=== PATIENT | male | born 1950 | race Caucasian/White ===

== ENCOUNTER → 2016-10-11 | Outpatient (CLI) | payer MEDICARE, OTHER ==
--- NOTE | ~2016-10-11 | PUL ---
PATIENT'S NAME: CORTEZ ALMENDAREZ [facility] AGE: 65 Y [address] ROOM: [place] [address] LOCATION: [facility] ADMIT DATE: 10/11/2016 Pulmonary DISCHARGE DATE: FAMILY PHYSICIAN: Deborah Greene MD ATTENDING PHYSICIAN: Deborah Greene NAME OF PROCEDURE: Sleep Study DATE OF PROCEDURE: 10/11/2016 TECH: FILI Maria TEST [place]: [facility] [place] [id number] TECHNICAL PARAMETERS: The patient was studied using International 10/20 measuring system. While the patient was studied, there was continuous monitoring of EEG (8 leads), EOG (2 leads), EKG (3 leads), submental EMG (3 leads), tibial (4 leads), respiratory inductive plethysmography (RIP) for thoracic and abdominal effort, oral and nasal airflow with a thermocouple and pressure transducer, and oximetry. The biometric fingerprinting technician also performed visual and auditory observations noting things like body position, patient's status, breath sounds, artifact, snoring level and patient comments. Continuous sound was monitored using a 2-way speaker system and video monitoring was performed using an infrared camera. Review of the entire study was performed epoch by epoch utilizing a single epoch and multiple epoch capability sleep system. MEDICAL HISTORY: Patient is a 65-year-old gentleman with a history of hypersomnolence and snoring. SLEEP STAGE SUMMARY: The patient was studied for 497 minutes of which he slept 356 minutes. He fell asleep in 7 minutes and slept for 72% of the night. Sleep architecture revealed a decline in slow wave and REM sleep. RESPIRATORY SUMMARY: Oxygen saturations ranged from 80-92% saturations were below 88% for 46 minutes. Prior to initiating CPAP there were 53 apneas and 113 hypopneas for an apnea/hypopnea index severely elevated at 49 events per hour. CPAP was initiated and titrated to 12 cm with good control of the respiratory events. EKG SUMMARY: No dysrhythmias were noted. LIMB MOVEMENT SUMMARY: No clinically relevant periodic limb movements were noted. SUMMARY: Obstructive sleep apnea responsive to a CPAP at 12 cm. PATIENT'S NAME: CORTEZ ALMENDAREZ [facility] AGE: 65 Y [address] ROOM: [place] [address] LOCATION: [facility] ADMIT DATE: 10/11/2016 Pulmonary DISCHARGE DATE: FAMILY PHYSICIAN: Deborah Greene MD ATTENDING PHYSICIAN: Deborah Greene PLAN: Patient will receive results from the ordering provider. KENNETH BARCENAS MD [facility] /[phone] dtt: 10/21/16 1018 , Kenneth Barcenas. dtd: 10/17/16 1525
== END | disposition disaster alternative care site (69) ==
LOC: GSLP 20:33
DX: G47.30 Sleep apnea, unspecified (principal); R06.83 Snoring; Z87.891 Personal history of nicotine dependence

== ENCOUNTER → 2017-01-11 | Outpatient (CLI) | payer MEDICARE, OTHER | END | disposition disaster alternative care site (69) | LOC: GRAD 15:47 | DX: L98.9 Disorder of the skin and subcutaneous tissue, unspecified (principal); M25.562 Pain in left knee ==

== ENCOUNTER → 2017-03-20 | Outpatient (CLI) | payer MEDICARE, OTHER ==
--- NOTE | ~2017-03-20 | ESTC ---
Cardiac Perfusion Imaging Demographics Patient Name ERICKSON Diaz Gender Male Patient Number [id number] Race Visit Number [id number] Ethnicity [employer] ID Room Number Accession Number [id number] Height 70 inches Date of 1950 Weight 215 pounds Jc Pandya Pola Interpreting GUY Kimball Kirstin Date of study 03/20/2017 Physician Angela Ball MD Supervising MD/MLP Joselo MARES Technologist Samir Escalona MD Ordering Physician Joselo Escalona MD radiation control technician Stress ECG Reading Joselo Hunt Nurse Audrey Teran RN Physician Pola KEMP The procedure was explained in detail to the patient. Risks, complications and alternative treatments were reviewed. Written consent was obtained. Procedure Procedure Type: Nuclear Stress Test:Pharmacological, Lexiscan, Cardiolite Stress Test Procedure Start time: 03/20/2017 09:40 Indications: Atrial fibrillation. Risk Factors The patient risk factors include:peripheral arterial disease, obesity, former tobacco use, treated hypercholesterolemia, prior valve surgery/procedure and ( years not smokin). Conclusions Impression ECG portion of lexiscan stress test is clinically negative for ischemia by diagnostic criteria. Myocardial perfusion imaging is essentially normal. There is decreased perfusion in the basal and mid lateral wall at rest with essentially normal perfusion post stress, suggestive of artifact. Overall left ventricular systolic function was normal without regional wall motion abnormalities. Calculated LVEF is 60% and TID ratio is 1.09. Stress Protocols Resting ECG A paced, poss ASMI old. minor ST depression Pre-stress physical exam: Patient assessed by Dr Josue prior to testing. Stress Protocol:Pharmacologic Predicted HR: 154 bpm ECG Findings No ECG changes suggestive of ischemia. Arrhythmias Rare PVCs Symptoms Flushing Stress Interpretation Appropriate hemodynamic response to Lexiscan. No significant ST-T wave changes with Lexiscan. ECG portion is negative for ischemia by diagnostic criteria. Imaging Results Summed scores - Summed stress score: 0 - Summed rest score: 3 - Summed difference score: -3 Stress ejection Ejection fraction:60 % EDV :139 ml ESV :56 ml Stroke volume :83 ml LV mass :155 gr Imaging Protocols Rest Stress Isotope:Tc99m Sestamibi IV Isotope: Tc99m Sestamibi IV Isotope dose:13.6 mCi Isotope dose:41.59 mCi Date:03/20/2017 07:28 Date:03/20/2017 09:03 Technique: SPECT Technique: Gated Supine SPECT Supine Scan Time:45-60 minutes post Scan Time:45-60 minutes post injection injection Procedure Medications - Regadenoson (Lexiscan) 0.4 mg IV over 10-15 sec. I.V. 0.4 mg. Medications administered per verbal order and read back to physician prior to administration. Medical History Admission Data Admission date: 03/20/2017 Admission Time: 07:14 Hospital Status: Outpatient. Signatures dtt: MELISSA PEREZ dtd: 03/20/17 0940 Physician Self Edit
== END | disposition disaster alternative care site (69) ==
LOC: GRAD 07:14
DX: I47.2 Ventricular tachycardia (principal); I73.9 Peripheral vascular disease, unspecified; E66.9 Obesity, unspecified; Z87.891 Personal history of nicotine dependence
CPT/HCPCS: A9500; J2785